=== PATIENT | female | born 1950 | race Caucasian/White ===

== ENCOUNTER 2019-05-29 13:20 | Outpatient (CLI) | payer BC | END 2019-05-29 23:59 | disposition home or self-care (01) | LOC: CFH 13:20 | PROVIDERS: ATTEND Obstetrics & Gynecology Gynecology | DX: Z12.31 Encounter for screening mammogram for malignant neoplasm of breast (principal); N83.201 Unspecified ovarian cyst, right side | CPT/HCPCS: 76830; 77067 ==